=== PATIENT | female | born 1995 | race Caucasian/White ===

== ENCOUNTER 2018-04-17 20:40 | Emergency (ER) | payer OTHER ==
[~2018-04-17] VITALS: Ht 157.5 cm; Wt 61.7 kg
[2018-04-17] MEDS ORDERED: IV NORMAL SALINE 1000 ML BAG IV ONE (21:00)
[2018-04-17] MEDS ORDERED: ONDANSETRON 4 MG/2 ML VIAL IV ONE (21:00)
--- NOTE | 2018-04-17 21:10 | NUR ---
Pt ambulated in ER with steady gait. Pt c/o intermittent abdominal pain with N/V x4 episodes after having a hamburger for dinner. Pt AAO x 4. Pt denies SOB, CP, diarrhea. Safe environment implemented.
[2018-04-17 21:11] LABS: BASOPHILS % (AUTO) 0.2 % (0.0-2.0); EOSINOPHILS # (AUTO) 0.1 K/uL (0.0-0.7); EOSINOPHILS % (AUTO) 0.5 % (0.0-7.0); HEMOGLOBIN 15.2 g/dL (10.9-14.3); LYMPHOCYTES # (AUTO) 1.3 K/uL (20.0-40.0); LYMPHOCYTES % (AUTO) 7.7 % (20.5-51.5); MEAN CORPUSCULAR HEMOGLOBIN 31.1 uug (24.7-32.8); MEAN CORPUSCULAR HGB CONC 35 g/dL (32.3-35.6); NEUTROPHILS % (AUTO) 85.6 % (38.5-71.5); PLATELET COUNT (AUTO) 284 K/uL (179-408); RED BLOOD CELL COUNT(AUTO) 4.89 MIL/uL (3.63-4.92); WHITE BLOOD COUNT (AUTO) 17.4 K/uL (3.8-11.8)
[2018-04-17] MEDS ORDERED: ONDANSETRON 4 MG/2 ML VIAL ONE (21:11)
[2018-04-17 21:18] LABS: CREATININE 0.8 mg/dL (0.6-1.3); POTASSIUM 3.4 mmol/L (3.5-5.1)
--- NOTE | 2018-04-17 21:18 | NUR ---
Dr. Fontanez at bedside for MSE.
[2018-04-17 21:24] LABS: BILIRUBIN,DIRECT 0.1 mg/dL (0.0-0.2); BILIRUBIN,TOTAL 0.6 mg/dL (0.2-1.0)
[2018-04-17] MEDS ORDERED: KETOROLAC TROMETHAMINE 30 MG INJ ONE (21:28)
[2018-04-17] MEDS ORDERED: PANTOPRAZOLE SODIUM 40 MG VIAL ONE (21:29)
[2018-04-17] MEDS ORDERED: PANTOPRAZOLE SODIUM 40 MG VIAL IV ONE (21:30)
[2018-04-17] MEDS ORDERED: KETOROLAC TROMETHAMINE 30 MG INJ IVP ONE (21:30)
[2018-04-17 21:31] LABS: *BILIRUBIN,URIN NEGATIVE (NEGATIVE); *BLOOD, URINE NEGATIVE (NEGATIVE); *COLOR,URINE YELLOW (YELLOW); *KETONES,URINE 3+ (NEGATIVE); *PROTEIN,URINE TRACE (NEGATIVE); *UROBILINOGEN,URINE 0.2 E.U./dl (NORMAL); LEUKOCYTE ESTERASE ,URINE 1+ (NEGATIVE); NITRITE, URINE NEGATIVE (NEGATIVE); UGLUCOSE NEGATIVE (NEGATIVE)
[2018-04-17 21:33] LABS: *URINE HCG, QUAL NEGATIVE (NEGATIVE)
[2018-04-17 21:37] LABS: *CLARITY,URINE SLIGHTLY CLOUDY (CLEAR)
[2018-04-17 21:38] LABS: BACTERIA,URINE MODERATE /HPF (NONE SEEN); MUCUS,URINE MANY /LPF (0-FEW); SQUAMOUS EPITHELIAL CELL,UR MODERATE /HPF (NONE SEEN)
[2018-04-17] MEDS ORDERED: POTASSIUM CHLORIDE 20 MEQ TAB.PRT.SR PO ONE (22:30)
[2018-04-17] MEDS ORDERED: SULFAMETH/TRIMETH 800/160 MG TABLET PO ONE (22:45)
[2018-04-17] MEDS ORDERED: POTASSIUM CHLORIDE 20 MEQ TAB.PRT.SR ONE (22:50)
[2018-04-17] MEDS ORDERED: SULFAMETH/TRIMETH 800/160 MG TABLET ONE (22:50)
--- NOTE | 2018-04-17 22:56 | NUR ---
IV removed. Catheter intact and site benign. Pressure and 4x4 gauze applied to site. No bleeding noted. Patient discharged to home in stable conditon. Written and verbal after care instructions given. Patient verbalizes understanding of instructions.
[2018-04-17 22:57] VITALS: BP 107/60
== END 2018-04-17 22:57 | disposition home or self-care (01) ==
LOC: ER 20:41
DX: R11.10 Vomiting, unspecified (principal); N39.0 Urinary tract infection, site not specified; E87.6 Hypokalemia; E86.0 Dehydration; Z90.49 Acquired absence of other specified parts of digestive tract
CPT/HCPCS: 36415; 80048; 80076; 81001; 83690; 84703; 85025; 87086; 96361; 96374; 96375; 99283; C9113; J1885; J2405; A4663; J7030

== ENCOUNTER 2025-04-21 15:02 | Emergency (ER) | payer BC, OTHER ==
[~2025-04-21] VITALS: Ht 157.5 cm; Wt 60.8 kg
[2025-04-21 15:08] VITALS: BP 111/67
[2025-04-21] MEDS ORDERED: IBUPROFEN 200 MG TABLET ONE (15:30)
[2025-04-21] MEDS ORDERED: ACETAMINOPHEN 325 MG TABLET ONE (15:30)
[2025-04-21] MEDS: IBUPROFEN 200 MG TABLET PO ONE (15:34)
[2025-04-21] MEDS: ACETAMINOPHEN 325 MG TABLET PO ONE ×2 (15:35)
[2025-04-21 15:55] VITALS: BP 120/74; O2SAT 97
== END 2025-04-21 16:03 | disposition home or self-care (01) ==
LOC: ER 15:05
DX: T14.8XXA Other injury of unspecified body region, initial encounter (principal); Z88.7 Allergy status to serum and vaccine; Z90.49 Acquired absence of other specified parts of digestive tract; V89.2XXA Person injured in unspecified motor-vehicle accident, traffic, initial encounter; Y93.89 Activity, other specified; Y92.410 Unspecified street and highway as the place of occurrence of the external cause; Y99.9 Unspecified external cause status
CPT/HCPCS: A4606; A4663